=== PATIENT | male | born 1945 | race Caucasian/White ===

== ENCOUNTER 2016-12-14 06:35 | Day surgery (SDC) | payer OTHER ==
[~2016-12-14] VITALS: Ht 182.9 cm; Wt 112.0 kg
[2016-12-14] VITALS (13 sets, daily range): BP systolic 104–134; BP diastolic 51–76; PULSE 54–73; RESP 9–18; Ht 182.9 cm; Wt 112.0 kg
[~2016-12-14 06:35] MED LIST: CEFAZOLIN 1 GM/50 ML (PMX) 50 ML IVPB ONE
[2016-12-14] MEDS ORDERED: CARV12.598 PO (07:40)
[2016-12-14] MEDS ORDERED: LOSA1TAB19 PO (07:40)
[2016-12-14] MEDS ORDERED: MAGN400T28 PO (07:40)
[2016-12-14] MEDS ORDERED: AMLO-147 PO (07:40)
[2016-12-14 07:45] LABS: ADD SCAN DIFF NO
[2016-12-14 07:50] LABS: BASOPHILS % 0.4 % (0.0-2.0); EOSINOPHILS # 0.2 10^3/ul (0.0-0.5); EOSINOPHILS % 3.5 % (0.0-7.0); HEMOGLOBIN 13.2 g/dl (14.0-18.0); LYMPHOCYTES # 1.7 10^3/ul (0.8-2.9); LYMPHOCYTES % 32.8 % (15.0-51.0); MEAN CORPUSCULAR HEMOGLOBIN 31.2 pg (29.0-33.0); MEAN CORPUSCULAR HGB CONC 33.8 g/dl (32.0-37.0); MEAN CORPUSCULAR VOLUME 92.2 fl (82.0-101.0); MEAN PLATELET VOLUME 8.8 fl (7.4-10.4); MONOCYTE # 0.5 10^3/ul (0.3-0.9); MONOCYTES % 9.4 % (0.0-11.0); NEUTROPHIL # 2.8 10^3/ul (1.6-7.5); NEUTROPHILS % 53.7 % (39.0-77.0); PLATELET COUNT 190 10^3/UL (140-415); RED BLOOD COUNT 4.23 10^6/ul (4.70-6.10); RED CELL DISTRIBUTION WIDTH 12.3 % (11.5-14.5); WHITE BLOOD COUNT 5.2 10^3/ul (4.8-10.8)
[2016-12-14 08:00] LABS: CREATININE 0.97 mg/dl (0.61-1.24)
[2016-12-14 08:02] LABS: CALCIUM 9.3 mg/dl (8.4-10.2)
[2016-12-14 08:18] LABS: INR 0.94; PARTIAL THROMBOPLASTIN TIME 29.9 Sec (25.0-35.0); PROTIME 12.6 Sec (12.2-14.2)
[2016-12-14] MEDS ORDERED: HEPARIN 1000 UNITS/ML 10 ML INJ ONE (08:52)
[2016-12-14] MEDS ORDERED: IODIXANOL LOCM 100 ML BTL ONE (08:52)
[2016-12-14] MEDS ORDERED: LIDOCAINE 1% (MDV) 20 ML INJ ONE (08:52)
[2016-12-14] MEDS ORDERED: SOD CHLORIDE 0.9% 500 ML ONE (08:53)
[2016-12-14] MEDS ORDERED: FENTAnyl 50 MCG/ML VIAL ONE (08:53)
[2016-12-14] MEDS ORDERED: MIDAZOLAM 1 MG/ML 2 ML INJ ONE (08:53)
[2016-12-14] MEDS ORDERED: DIPHENHYDRAMINE 50 MG INJ ONE (09:32)
--- NOTE | 2016-12-14 09:40 | RADRPT ---
PROCEDURE: XR Chest. CLINICAL INDICATION: pre op TECHNIQUE: Single frontal view of the chest was obtained. COMPARISON: None. FINDINGS: There is mild cardiomegaly. The lungs are clear. There is no significant pleural effusion or pneumothorax. IMPRESSION: Mild cardiomegaly. No focal infiltrates or effusions. RPTAT: EE Physician Kaleigh Date Time Electronically viewed and signed by Db Banerjee Physician on 12/14/2016 09:39 RA/
--- NOTE | 2016-12-14 10:39 | OPR ---
DATE OF OPERATION: 12/14/2016 INDICATION FOR THE PROCEDURE: 1. Ventricular tachycardia, nonsustained monomorphic. 2. Reduced ejection fraction on the echocardiogram. 3. Abnormal cardiac stress test. The patient presents for left heart catheterization to evaluate the coronaries and the cause of the ventricular tachycardia. In addition to this, the patient is also complaining of episodic chest dis comfort and chest pain. PROCEDURE: 1. Left heart catheterization. 2. Selective right coronary angiography. 3. Selective left coronary angiography. 4. Left ventriculogram. 5. Right femoral artery angiography. 6. Perclose, closure device placement into the right femoral artery with no complications. 7. Defibrillator pad placements anteriorly and posteriorly. 8. O2 sat monitoring and blood pressure monitoring. 9. Conscious sedation for 1 hour. DESCRIPTION OF PROCEDURE: After informed consent was obtained by the patient, the patient was broug ht into the cardiac catheterization laboratory where the patient's right groin and left groin was pr epped and draped in usual sterile fashion. Following this, 1% lidocaine was used in order to infilt rate at the right groin. A 6-[place] sheath was placed into the right femoral artery. Following thi s, the patient then received catheterization to the right coronary artery, left coronary artery, as well as a pigtail catheter into the left ventricle for left ventriculogram. Following this, the pat ient had right femoral artery angiography and Perclose seal placement. No complications occurred. FINDINGS: 1. The left main coronary artery was patent. 2. Left main branches to the LAD and the circumflex. 3. The circumflex coronary artery had a proximal 40% stenosis. 4. The LAD was patent and it tapered off into the apical region. 5. There was no significant stenosis in the LAD. If any, it was less than 10%. 6. The RCA was a fairly large and dominant vessel. No complications occurred. 7. Left ventriculogram was performed in [place]HE[place] view, and the ejection fraction has been reduced to vashti roximately 30% to 35%. 8. Right femoral artery angiography was performed and the patient's insertion site was above the bi furcation of the femoral artery. IMPRESSION: 1. 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 The patient has been o n optimal medical therapy with beta blockers and angiotensin receptor blockers and magnesium. He richardson s been taking it for over 1 year. 2. The patient will require an implantable cardiac defibrillator in order to prevent sudden s pete he is having nonsustained VT as well. 3. I have discussed this with the family as well as the patient. He is agreeable and he will follo w up with me in the office. Dictated By: MOO FIGUEROA MD, LP/JANET Conf#: [id number] DID#: [id number]
[2016-12-14] MEDS ORDERED: SOD CHLORIDE 0.45% 1,000 ML IV SCH (11:30)
--- NOTE | 2016-12-14 15:58 | RADRPT ---
Vent Rate: 55 bpm RR Interval: 0 msec NV Interval: 190 msec QRS Duration: 128 msec QT Interval: 480 msec QTC Interval: 459 msec P-R-T Nicasio: 47 - -50 - -8 degrees Sinus bradycardia Left axis deviation Nonspecific intraventricular block Abnormal ECG Electronically Signed By: Francois Su [id number]
== END 2016-12-14 14:20 | disposition home or self-care (01) ==
LOC: SDS 06:35
PROVIDERS: ATTEND Internal Medicine
DX: I47.2 Ventricular tachycardia (principal); I42.9 Cardiomyopathy, unspecified; I10 Essential (primary) hypertension; E78.00 Pure hypercholesterolemia, unspecified
CPT/HCPCS: 71010; 80048; 85025; 85610; 85730; 93005; 93458; C1760; C1769; C1887; C1894; J1200; J1644; J2250; J3010; J7040; Q9967